=== PATIENT | female | born 1990 | race Caucasian/White ===

== ENCOUNTER 2021-08-19 01:47 | Emergency (ER) | payer BC ==
[~2021-08-19] VITALS: Ht 162.6 cm; Wt 99.8 kg
[~2021-08-19 01:47] MED LIST: ACETAMINOPHEN-1 EAC1 PO; AMOXICILLIN 50500 MG PO; AMOXICILLIN500 M1 PO; FLEXERIL PO; IBUPROFEN 800800 M1 PO; IBUPROFEN 800800 MG PO; MEDROLDOSEPACK PO; METFORMIN; NAPROSYN500 MG PO; NORCO 5-325 TA1 EACH PO; PENICILLIN V P500 MG; PENICILLIN V P500 MG PO; PHENTERMINE; TIZANIDINE HCL4 MG PO; TRAMADOL 50 MG50 MG PO; ULTRAM 50MG TAB50 MG PO; ULTRAM50 MG PO; VALIUM5 MG PO
[2021-08-19] MEDS ORDERED: PENICILLIN V P500 MG PO (02:56)
[2021-08-19] MEDS ORDERED: HYDROCODON-ACE1 EAC7 PO (02:56)
[2021-08-19 03:39] VITALS: BP 143/85
== END 2021-08-19 03:40 | disposition home or self-care (01) ==
LOC: M.ERS 01:47
DX: K02.9 Dental caries, unspecified (principal); F17.210 Nicotine dependence, cigarettes, uncomplicated